=== PATIENT | female | born 1945 | race African-American/Black ===

== ENCOUNTER → 2017-06-18 | Outpatient (CLI) | payer MEDICARE, OTHER ==
[~2017-06-18] MED LIST: ASPI1TAB PO; ATEN50TA2 PO; BENA40TA7 PO; CITA40TA4 PO; FERR325T3 PO; GABA-282 PO; JANU100T PO; SIMV40TA2 PO; ZETI10TA30 PO
--- NOTE | 2017-06-18 12:34 | REP ---
Clinical: Preoperative assessment . Comparison: None . Technique: PA and lateral. Findings: The cardiac silhouette is enlarged. Airway is patent and midline. The lung dennis are clear and without acute consolidation, effusion, or pneumothorax. The skeletal structures are intact and normal. Evidence of prior gastric bypass surgery. Impression: 1. Moderate cardiomegaly. No acute cardiopulmonary process. Signed by Edmund More MD 06/18/2017 12:25 P
[2017-06-18 12:58] LABS: ALBUMIN 3.3 GM/DL (3.2-5.2); ALBUMIN/GLOBULIN RATIO 0.83 (1.00-1.93); BILIRUBIN,TOTAL 0.5 MG/DL (0.2-1.0); CALCIUM LEVEL 9.1 MG/DL (8.8-10.2); CREATININE FOR GFR 1.55 MG/DL (0.55-1.02); GLOMERULAR FILTRATION RATE 42.4 (>39); POTASSIUM SERUM 4.6 MEQ/L (3.5-5.1); TOTAL PROTEIN 7.3 GM/DL (6.4-8.2)
[2017-06-18 13:06] LABS: MEAN CORPUSCULAR HEMOGLOBIN 30.6 pg (27.0-33.0); MEAN CORPUSCULAR VOLUME 95.7 fl (80.0-96.0); PLATELET COUNT, AUTOMATED 193 10^3/uL (150-450); RED CELL DISTRIBUTION WIDTH 13.1 % (11.5-14.5); WHITE BLOOD COUNT 5.1 10^3/uL (4.0-10.0)
[2017-06-18 13:17] LABS: INR 0.96
[2017-06-18 14:03] LABS: ERYTHROCYTE SEDIMENTATION RATE 56 mm/hr (0-30)
== END ==
LOC: M ADMPAT 10:13
PROVIDERS: ATTEND Orthopaedic Surgery
DX: Z01.818 Encounter for other preprocedural examination (principal); M16.11 Unilateral primary osteoarthritis, right hip; Z79.899 Other long term (current) drug therapy

== ENCOUNTER → 2017-09-28 | Outpatient (REF) | LOC: M LAB 12:25 | DX: Z02.89 Encounter for other administrative examinations (principal) ==